=== PATIENT | female | born 1985 | race African-American/Black ===

== ENCOUNTER 2020-09-10 03:30 | Inpatient (IN) | payer MEDICAID ==
[~2020-09-10] VITALS: Ht 172.7 cm; Wt 47.2 kg
[2020-09-10 03:30] VITALS: BP 107/72
[2020-09-10 05:44] VITALS: BP 110/68
[2020-09-10] MEDS ORDERED: MAGNESIUM HYDROXIDE SUSPENSION 30 ML UDCUP PO PRN (07:30)
[2020-09-10] MEDS ORDERED: ALBUTEROL SULFATE HFA 90 MCG/PUFF 8 GM INHALER IH PRN (07:30)
[2020-09-10] MEDS ORDERED: PETROLATUM,WHITE 28 GM JELLY TP PRN (07:30)
[2020-09-10] MEDS ORDERED: GuaiFENesin/D-METHORPHAN [SUGAR-FREE] 200-20MG/10 ML SYRUP UDCUP PO PRN (07:30)
[2020-09-10] MEDS ORDERED: MAG HYDROX/AL HYDROX/SIMETH ES 30 ML SUSPENSION UDCUP PO PRN (07:30)
[2020-09-10] MEDS ORDERED: LOPERAMIDE HCL 2 MG CAPSULE PO PRN (07:30)
[2020-09-10] MEDS ORDERED: CloNIDine HCL 0.1 MG TABLET PO PRN (07:30)
[2020-09-10] MEDS ORDERED: ACETAMINOPHEN 325 MG TABLET PO PRN (07:30)
[2020-09-10] MEDS ORDERED: ONDANSETRON HCL 4 MG TABLET PO PRN (07:30)
[2020-09-10] MEDS ORDERED: NICOTINE 14 MG/24 HOUR PATCH TD PRN (07:30)
[2020-09-10] MEDS ORDERED: DOCUSATE SODIUM 100 MG CAPSULE PO PRN (07:30)
[2020-09-10] MEDS: IBUPROFEN 400 MG TABLET PO PRN (10:12)
[2020-09-10 17:22] VITALS: BP 119/67
[2020-09-10] MEDS: QUEtiapine FUMARATE 100 MG TABLET PO PRN (18:11)
[2020-09-10] MEDS: LORazepam 2 MG TABLET PO PRN (19:37)
[2020-09-11 08:34] VITALS: BP 125/68
[2020-09-11 16:06] VITALS: BP 133/77
[2020-09-11] MEDS: IBUPROFEN 400 MG TABLET PO PRN (16:09)
[2020-09-11] MEDS: QUEtiapine FUMARATE 100 MG TABLET PO PRN (16:09)
[2020-09-12 01:15] VITALS: BP 118/72
[2020-09-12] MEDS: MULTIVITAMINS WITH MINERALS, THERAPEUTIC TABLET PO SCH (08:06)
[2020-09-12 08:19] VITALS: BP 103/60
[2020-09-12] MEDS: IBUPROFEN 400 MG TABLET PO PRN (10:44)
[2020-09-12 16:09] VITALS: BP 120/65
[2020-09-12] MEDS ORDERED: DiphenhydrAMINE HCL 50 MG/ML VIAL ONE (16:11)
[2020-09-12] MEDS ORDERED: HALOPERIDOL LACTATE 5 MG/ML VIAL ONE (16:11)
[2020-09-12] MEDS ORDERED: LORazepam 2 MG/ML VIAL ONE (16:11)
[2020-09-12] MEDS ORDERED: HALOPERIDOL LACTATE 5 MG/ML VIAL IM ONE (16:45)
[2020-09-12] MEDS ORDERED: DiphenhydrAMINE HCL 50 MG/ML VIAL IM ONE (16:45)
[2020-09-12] MEDS ORDERED: LORazepam 2 MG/ML VIAL IM ONE (16:45)
[2020-09-12] MEDS: CEPHALEXIN MONOHYDRATE 500 MG CAPSULE PO SCH (18:30)
[2020-09-13] MEDS ORDERED: INFLUENZA VIRUS VACCINE QVS 2020-21 (6MO+)/PF 60 MCG/0.5 ML SYRINGE IM ONE (01:30)
[2020-09-13 05:42] VITALS: BP 102/67
[2020-09-13 07:39] LABS: BASOPHILS % (AUTO) 1.5 % (0.0-2.0); EOSINOPHILS % (AUTO) 3.8 % (1.0-6.0); HEMATOCRIT 29.2 % (36-46); HEMOGLOBIN 8.8 g/dL (12.0-16.0); LYMPHOCYTES # (AUTO) 1.3 K/uL (1.0-4.8); LYMPHOCYTES % (AUTO) 31.1 % (22.0-44.0); MEAN CORPUSCULAR HEMOGLOBIN 19.5 pg (26.0-34.0); MEAN CORPUSCULAR VOLUME 65 fL (80-100); MONOCYTES # (AUTO) 0.4 K/uL (0.1-1.0); NEUTROPHILS # (AUTO) 2.3 K/uL (1.8-7.7); NEUTROPHILS % (AUTO) 53.6 % (40.0-70.0); PLATELET COUNT (AUTO) 422 K/uL (150-450); RED BLOOD CELL COUNT(AUTO) 4.48 MIL/uL (4.00-5.20)
[2020-09-13 07:53] LABS: CHOL/HDL RATIO 2.7 (3.9-5.7)
[2020-09-13 08:14] LABS: ANION GAP 5 mmol/L (8-16); CALCIUM, TOTAL 8.8 mg/dL (8.8-10.5); CARBON DIOXIDE 29 mmol/L (22-29); CHLORIDE 104 mmol/L (98-107); CREATININE 0.73 mg/dL (0.60-1.30); GLOMERULAR FILTR. RATE CALC > 60 mL/min (>60); GLUCOSE,RANDOM 83 mg/dL (70-110); POTASSIUM 4.8 mmol/L (3.5-5.1); SODIUM SERUM 138 mmol/L (136-145); UREA NITROGEN, BLOOD 15 mg/dL (7-18)
[2020-09-13 08:17] VITALS: BP 116/79
[2020-09-13 08:31] LABS: FREE T4 (FREE THYROXINE) 0.76 ng/dL (0.76-1.46)
[2020-09-13] MEDS: CEPHALEXIN MONOHYDRATE 500 MG CAPSULE PO SCH ×3 (08:52→16:29)
[2020-09-13] MEDS: MULTIVITAMINS WITH MINERALS, THERAPEUTIC TABLET PO SCH (08:52)
[2020-09-13] MEDS: QUEtiapine FUMARATE 100 MG TABLET PO PRN ×2 (08:55→20:00)
[2020-09-13 18:21] VITALS: BP 130/70
[2020-09-13] MEDS ORDERED: TraZODone HCL 50 MG TABLET PO SCH (21:00)
[2020-09-13] MEDS: ZOLPIDEM TARTRATE 10 MG TABLET PO PRN (22:42)
[2020-09-14 04:25] VITALS: BP 118/74
[2020-09-14 08:00] VITALS: BP 94/58
[2020-09-14] MEDS: CEPHALEXIN MONOHYDRATE 500 MG CAPSULE PO SCH ×3 (08:37→16:17)
[2020-09-14] MEDS: MULTIVITAMINS WITH MINERALS, THERAPEUTIC TABLET PO SCH (08:37)
[2020-09-14 09:30] VITALS: BP 110/72
[2020-09-14] MEDS ORDERED: TraZODone HCL 50 MG TABLET PO SCH (11:15)
[2020-09-14] MEDS: QUEtiapine FUMARATE 100 MG TABLET PO PRN ×2 (12:43→20:10)
[2020-09-14] MEDS: FERROUS SULFATE 325 MG EC TABLET PO SCH (16:17)
[2020-09-14] MEDS: QUEtiapine FUMARATE 25 MG TABLET PO SCH (16:19)
[2020-09-14 17:08] VITALS: BP 96/60
[2020-09-14 17:41] VITALS: BP 113/62
[2020-09-14] MEDS: ZOLPIDEM TARTRATE 10 MG TABLET PO PRN (20:09)
[2020-09-14] MEDS: LORazepam 2 MG TABLET PO PRN (20:09)
[2020-09-15 04:02] VITALS: BP 125/65
[2020-09-15] MEDS: FERROUS SULFATE 325 MG EC TABLET PO SCH (06:10)
[2020-09-15 08:20] VITALS: BP 120/74
[2020-09-15] MEDS: MULTIVITAMINS WITH MINERALS, THERAPEUTIC TABLET PO SCH (08:42)
[2020-09-15] MEDS: CEPHALEXIN MONOHYDRATE 500 MG CAPSULE PO SCH (08:43)
[2020-09-15] MEDS: IBUPROFEN 400 MG TABLET PO PRN (08:43)
[2020-09-15] MEDS: QUEtiapine FUMARATE 25 MG TABLET PO SCH (08:44)
[2020-09-15] MEDS ORDERED: QUET25TA PO (11:18)
[2020-09-15] MEDS ORDERED: FERR-89 PO (11:21)
[2020-09-15] MEDS ORDERED: CEPH125S PO (11:21)
[2020-09-15] MEDS ORDERED: CEPH250S35 PO (11:23)
== END 2020-09-15 11:58 | disposition home or self-care (01) | DRG 751 ==
LOC: B2S 03:30 → B3A 09-12 18:24
PROVIDERS: ADMIT Psychiatry & Neurology Child & Adolescent Psychiatry; ATTEND Psychiatry & Neurology Child & Adolescent Psychiatry
DX: F33.2 Major depressive disorder, recurrent severe without psychotic features (principal); E87.1 Hypo-osmolality and hyponatremia; N39.0 Urinary tract infection, site not specified; E43 Unspecified severe protein-calorie malnutrition; F43.10 Post-traumatic stress disorder, unspecified; F90.9 Attention-deficit hyperactivity disorder, unspecified type; F41.9 Anxiety disorder, unspecified; R45.851 Suicidal ideations; R45.87 Impulsiveness; Z79.899 Other long term (current) drug therapy; Z68.1 Body mass index [BMI] 19.9 or less, adult
CPT/HCPCS: 84439; J1200; J1630; J2060; Q0162